=== PATIENT | female | born 1990 ===

== ENCOUNTER 2016-07-07 05:13 | Emergency (ER) | payer MEDICAID ==
[2016-07-07] MEDS ORDERED: Sodium Chloride 0.9% 1,000 ML IV STA (05:29)
--- NOTE | 2016-07-07 05:46 | ED PDOC ---
HPI: Headache Time Seen by Provider: 07/07/16 05:22 Chief Complaint (Nursing): Headache Chief Complaint (Provider): headache History Per: Patient History/Exam Limitations: no limitations Onset/Duration Of Symptoms: Days Current Symptoms Are (Timing): Still Present Additional Complaint(s): 26yo female with PMHx including chiari malformation presents to the ED with c/o headache x few days with associated nausea, photophobia, and pressure-like constriction around head unrelieved by fioricet. Patient unable to f/u w/ neurologist because of insurance issues. Past Medical History Reviewed: Historical Data, Nursing Documentation, Vital Signs Vital Signs: Last Vital Signs Temp 98.4 F 07/07/16 05:15 Pulse 90 07/07/16 05:15 Resp 16 07/07/16 05:15 BP 129/88 07/07/16 05:15 Pulse Ox 100 07/07/16 05:15 - Medical History Other PMH: chiari malformation - Surgical History Surgical History: No Surg Hx - Family History Family History: States: No Known Family Hx - Home Medications Home Medications: Ambulatory Orders Medication Instructions Recorded Methylprednisolone [Medrol Dose 4 mg PO DAILY #21 mg 07/07/16 Pack (21 tabs)] - Allergies Allergies/Adverse Reactions: Allergies Allergy/AdvReac Type Severity Reaction Status Date / Time iodine Allergy RASH Verified 07/07/16 05:20 shellfish derived Allergy RASH Verified 07/07/16 05:20 Review of Systems ROS Statement: Except As Marked, All Systems Reviewed And Found Negative Eyes: Positive for: Other (photophobia ) Gastrointestinal: Positive for: Nausea Neurological: Positive for: Headache, Other (pressure like constriction around head ) Physical Exam - Reviewed Nursing Documentation Reviewed: Yes Vital Signs Reviewed: Yes - Physical Exam Appears: Positive for: Well, No Acute Distress, Uncomfortable Head Exam: Positive for: ATRAUMATIC, NORMAL INSPECTION, NORMOCEPHALIC Skin: Positive for: Normal Color, Warm, Dry Eye Exam: Positive for: Normal appearance, EOMI, PERRL ENT: Positive for: Normal ENT Inspection Neck: Positive for: Normal, Painless ROM, Supple Cardiovascular/Chest: Positive for: Regular Rate, Rhythm. Negative for: Murmur , Tachycardia Respiratory: Positive for: Normal Breath Sounds. Negative for: Wheezing, Respiratory Distress Gastrointestinal/Abdominal: Positive for: Normal Exam, Soft. Negative for: Tenderness Back: Positive for: Normal Inspection Extremity: Positive for: Normal ROM. Negative for: Deformity, Swelling Neurologic/Psych: Positive for: Alert, electrotype caster II-XII (intact ), Oriented (x3 ), Cerebellar Tests (normal ), Gait (steady ). Negative for: Motor/Sensory Deficits, Aphasia, Facial Droop - ECG O2 Sat by Pulse Oximetry: 100 Pulse Ox Interpretation: Normal (RA) Medical Decision Making Medical Decision Makin: Impression: migraine headache Plan: CT head EKG IVF, Reglan 10mg IVP, solu-medrol 125mg IVP, Toradol 30mg IVP reassess 0611: CT head impression: 1. No acute intracranial abnormality. 0625: Patient feeling much better, headache resolved. Patient will f/u w/ neurologist and PCP. Instructed to return to the ED with any worsening or concerning symptoms. Scribe Attestation: Documented by Lonnie Taylor acting as a scribe for Mamadou Velazquez MD. Provider Scribe Attestation: All medical record entries made by the Scribe were at my direction and personally dictated by me. I have reviewed the chart and agree that the record accurately reflects my personal performance of the history, physical exam, medical decision making, and the department course for this patient. I have also personally directed, reviewed, and agree with the discharge instructions and disposition. Disposition - Clinical Impression Clinical Impression: Headache - Patient ED Disposition Is Patient to be Admitted: No Counseled Patient/Family Regarding: Studies Performed, Diagnosis, Need For Followup - Disposition Referrals: Gutierrez Ruffin MD [Primary Care Provider] - Disposition: Routine/Home Disposition Time: 06:24 Condition: IMPROVED Prescriptions: Methylprednisolone [Medrol Dose Pack (21 tabs)] 4 mg PO DAILY #21 mg
--- NOTE | 2016-07-07 06:12 | CT ---
EXAM: CT Head Without Intravenous Contrast CLINICAL HISTORY: 26 years old, female; Pain; Headache; Prior surgery; Surgery date: 6+ months; Surgery type: Decompression 2012; Additional info: Chiari malformation, worsening AGUILERA TECHNIQUE: Axial computed tomography images of the head/brain without intravenous contrast. This CT exam was performed using one or more of the following dose reduction techniques: automated exposure control, adjustment of the mA and/or kV according to patient size, and/or use of iterative reconstruction technique. Coronal and sagittal reformatted images were created and reviewed. COMPARISON: CT HEAD OR BRAIN W/O CONT 07/26/2013 1:14:58 AM FINDINGS: Brain: No intracranial hemorrhage. No mass. No definite edema. Ventricles: No hydrocephalus. Bones/joints: No acute fracture. Occipital craniectomy. Soft tissues: Unremarkable. Sinuses: No acute sinusitis. Mastoid air cells: No mastoid effusion. Orbits: Unremarkable as visualized. IMPRESSION: 1. No acute intracranial abnormality. 2. Incidental/non-acute findings are described above.
[2016-07-07 07:09] VITALS: BP 128/78; PULSE 74; RESP 17; TEMP 98.1; O2SAT 99
--- NOTE | 2016-07-08 18:54 | CARD ---
APPROVED REPORT EKG Measurement Heart [id number] MD [id number] <Conclusion> Normal sinus rhythm with sinus arrhythmia Normal ECG
== END 2016-07-07 06:31 | disposition home or self-care (01) ==
LOC: H.ER 05:13
DX: G43.909 Migraine, unspecified, not intractable, without status migrainosus (principal); R11.0 Nausea